=== PATIENT | male | born 1975 | race Caucasian/White ===

== ENCOUNTER 2024-09-01 01:38 | Emergency (ER) | payer MEDICAID, OTHER ==
[~2024-09-01] VITALS: Ht 177.8 cm; Wt 68.0 kg
[2024-09-01] MEDS ORDERED: diphenhydrAMINE HCL 50 MG/ML VIAL ONE (01:53)
[2024-09-01] MEDS ORDERED: HALOPERIDOL LACTATE INJ 5 MG/ML VIAL ONE (01:53)
[2024-09-01] MEDS ORDERED: LORAZEPAM INJ 2 MG/ML VIAL ONE (01:55)
[2024-09-01] MEDS: LORAZEPAM INJ 2 MG/ML VIAL IM ONE (01:58)
[2024-09-01] MEDS: HALOPERIDOL LACTATE INJ 5 MG/ML VIAL IM ONE (01:58)
[2024-09-01] MEDS: diphenhydrAMINE HCL 50 MG/ML VIAL IM ONE (01:58)
[2024-09-01 02:46] LABS: BASOPHILS % (AUTO) 0.6 % (0.0-2.0); EOSINOPHILS # (AUTO) 0.1 K/uL (0.0-0.7); EOSINOPHILS % (AUTO) 2.1 % (0.0-6.0); HEMATOCRIT 39 % (39-51); HEMOGLOBIN 13.4 g/dL (13.5-17.5); LYMPHOCYTES # (AUTO) 1.5 K/uL (0.8-4.8); LYMPHOCYTES % (AUTO) 25.2 % (20.0-44.0); MEAN CORPUSCULAR HEMOGLOBIN 33 PG (26.0-33.0); MEAN CORPUSCULAR HGB CONC 35 g/dl (31.0-36.0); MEAN CORPUSCULAR VOLUME 96 fL (80-96); MONOCYTES # (AUTO) 0.6 K/uL (0.1-1.30); MONOCYTES % (AUTO) 9.8 % (2.0-12.0); NEUTROPHILS # (AUTO) 3.7 K/uL (1.8-8.9); NEUTROPHILS % (AUTO) 62.3 % (43.0-81.0); PLATELET COUNT (AUTO) 293 K/uL (150-450); RED BLOOD CELL COUNT(AUTO) 4.04 MIL/uL (4.5-6.0); RED CELL DISTRIBUTION WIDTH 13.1 % (11.5-15.0); WHITE BLOOD COUNT (AUTO) 5.9 K/uL (4.3-11.0)
[2024-09-01 02:51] LABS: APPEARANCE,URINE CLEAR (CLEAR); BILIRUBIN,URINE NEGATIVE (NEGATIVE); BLOOD, URINE 1+ Ery/uL (NEGATIVE); COLOR,URINE YELLOW (YELLOW); KETONES,URINE NEGATIVE (NEGATIVE); LEUKOCYTE ESTERASE ,URINE NEGATIVE (NEGATIVE); NITRITE, URINE NEGATIVE (NEGATIVE); PROTEIN,URINE NEGATIVE (NEGATIVE); UGLUCOSE NEGATIVE (NEGATIVE); UROBILINOGEN,URINE 0.2 EU/dL (0.2)
[2024-09-01 02:52] LABS: CALCIUM, SERUM 8.7 mg/dL (8.5-10.1); CARBON DIOXIDE 23 mmol/L (21-32); CHLORIDE 104 mmol/L (98-107); GLUCOSE 122 mg/dL (74-106); POTASSIUM 2.9 mmol/L (3.5-5.1); SODIUM SERUM 138 mmol/L (136-145); UREA NITROGEN, BLOOD 20 mg/dL (7-18)
[2024-09-01 02:57] LABS: ALANINE AMINOTRANSFERASE 60 U/L (12-78); ALBUMIN 3.6 g/dL (3.4-5.0); ALCOHOL, BLOOD 216 mg/dL (0-10); ALKALINE PHOSPHATASE 107 U/L (46-116); ASPARTATE AMINOTRANSFERASE 56 U/L (15-37); BILIRUBIN,TOTAL 0.3 mg/dL (0.2-1.0); TOTAL PROTEIN, SERUM 6.6 g/dL (6.4-8.2)
[2024-09-01 02:58] LABS: AMPHETAMINE, URINE NEGATIVE (NEGATIVE); BARBITURATE, URINE NEGATIVE (NEGATIVE); BENZODIAZEPINE, URINE NEGATIVE (NEGATIVE); CANNABINOID, URINE NEGATIVE (NEGATIVE); COCCAINE, URINE NEGATIVE (NEGATIVE); OPIATE, URINE NEGATIVE (NEGATIVE); PHENCYCLIDINE SCREEN,URINE NEGATIVE (NEGATIVE)
[2024-09-01 02:58] LABS: SALICYLATE 0.6 mg/dL (2.8-20.0)
[2024-09-01 02:59] LABS: ACETAMINOPHEN <10 ug/ml (10-30)
[2024-09-01 03:28] LABS: ADD URINE CULTURE NO; BACTERIA,URINE Few /HPF (None Seen); SQUAMOUS EPITHELIAL CELL,UR Few /HPF (None Seen); WBC,URINE 0-2 /HPF (0-3)
[2024-09-01 03:31] LABS: RBC,URINE 0-2 /HPF (0-2)
[2024-09-01] MEDS ORDERED: POTASSIUM CL. PREMIX PERIPHER. 50 ML ONE ×2 (06:02→06:13)
[2024-09-01] MEDS: POTASSIUM CL. PREMIX PERIPHER. 50 ML IV SCH (06:10)
[2024-09-01] MEDS: IV NS 0.9% 1,000 ML IV ONE ×2 (06:10)
[2024-09-01] MEDS ORDERED: POTASSIUM CHLORIDE 20 MEQ TAB.PRT.SR PO ONE (06:14)
[2024-09-01] MEDS: POTASSIUM CHLORIDE 20 MEQ TAB.PRT.SR PO ONE (06:16)
[2024-09-01 13:50] VITALS: BP 121/76; TEMP 98.1; O2SAT 97
== END 2024-09-01 14:00 ==
LOC: ER 01:40 → EDBD 01:40 → ER 14:00
DX: R45.851 Suicidal ideations (principal); F10.129 Alcohol abuse with intoxication, unspecified; Z20.822 Contact with and (suspected) exposure to COVID-19; Z79.899 Other long term (current) drug therapy; Y90.7 Blood alcohol level of 200-239 mg/100 ml
CPT/HCPCS: 99285; 96372 ×2; 96360; 96361; 85025; 81001; 36415; 80053; 87426; 80143; 80320 ×2; 80307; 98960; J2060; J1200; J1630; J3480 ×2; G0480